=== PATIENT | female | born 1970 | race Two or more races ===

== ENCOUNTER 2024-10-06 02:57 | Emergency (ER) | payer MEDICAID, OTHER, SELFPAY ==
--- NOTE | ~2024-10-06 | CT_ITS ---
EXAMINATION: CT ABDOMEN AND PELVIS WITHOUT CONTRAST CLINICAL INFORMATION: Abdominal pain. COMPARISON: None available. TECHNIQUE: Multidetector volumetric imaging was performed from the superior aspect of the liver through the pubic symphysis. Sagittal and coronal reformatted images were obtained on the technologist's workstation. This CT examination was performed using dose optimization techniques as appropriate, variously including the following: *Automated exposure control *Adjustment of mA and/or kV according to patient size (this includes techniques or standardized protocols for targeted exams where dose is matched to indication/reason for exam; i.e. extremities or head) *Use of iterative reconstruction technique DLP: 1046 mGy-cm FINDINGS: Limited evaluation of the intra-abdominal organs and vascular structures due to lack of IV contrast Pulmonary patchy groundglass bilaterally. LIVER, GALLBLADDER, AND BILIARY TREE: Liver measures 15 cm with the decreased attenuation. Multiple hypodensities within a contracted gallbladder lumen. No pericholecystic fluid collection or gallbladder wall thickening. No intrahepatic or extrahepatic biliary ductal dilatation. PANCREAS: No peripancreatic fluid collections. No main pancreatic ductal dilatation. SPLEEN: Measures 6 cm. ADRENAL GLANDS: No nodular lesions. KIDNEYS AND URETERS: No hydronephrosis or nephrolithiasis. BLADDER: Fluid-filled. GASTROINTESTINAL TRACT: Collapsed appearance of the left hemicolon and the proximal and distal transverse colon likely related to peristalsis. No intestinal obstruction pattern. I do not see the appendix. No pericecal edema pattern. No ascites. No pneumoperitoneum. No pneumatosis intestinalis. ABDOMINAL WALL: Diastases abdominal rectus muscles in the periumbilical region with small fat-containing umbilical hernia. LYMPH NODES: No gross lymphadenopathy. VASCULAR: No aneurysm, abdominal aorta. PELVIC VISCERA: Uterine fibroids. OSSEOUS STRUCTURES: Multilevel thoracolumbar spondylosis more conspicuous at L3-4 and L4-5 levels resulting in central spinal canal stenosis. Castellvi type I sacralization.. CT/CT abdomen pelvis wo IV con IMPRESSION: Cholelithiasis. Hepatic steatosis Small fat-containing umbilical hernia. Mild interstitial edema versus small pulmonary artery disease versus small airway disease. Uterine fibroids Fleischner guidelines were followed. Electronically signed by: Pete Cohen MD 10/06/2024 09:57 AM EST
[2024-10-06 03:02] VITALS: BP 000/00; PULSE 89; RESP 18; TEMP 36.6; O2SAT 100; BMI 44.1
--- NOTE | 2024-10-06 03:09 | ECG_ITS ---
Test Reason : Pain Blood Pressure : / mmHG Vent. Rate : 084 BPM Atrial Rate : 084 BPM P-R Int : 158 ms QRS Dur : 080 ms QT Int : 352 ms P-R-T Axes : 036 036 016 degrees QTc Int : 415 ms Normal sinus rhythm Normal ECG No previous ECGs available Referred By: Generic ED Physician Electronically Signed By:JILLIAN PILLAI MD
[2024-10-06 03:37] LABS: MANUAL DIFF FLAG NO
[2024-10-06 03:38] LABS: Basophils Percent Auto 0.1 % (0-2); Eosinophils Percent Auto 0.1 % (0-4); Hemoglobin 12.9 g/dl (12.0-16.0); Imm Gran Abs Auto 0.01 X10*3/uL (0.00-0.03); Imm Gran Pct Auto 0.1 % (0.0-0.4); Lymphocytes Absolute Auto 1.6 X10*3/uL (1.2-4.9); Lymphocytes Percent Auto 20.4 % (20-40); Mean Corpuscular HGB Conc 32.3 g/dl (31.0-35.0); Mean Corpuscular Hemoglobin 26.1 pg (27.0-33.0); Mean Platelet Volume 9.9 fL (9.4-12.3); Monocytes Absolute Auto 0.3 X10*3/uL (0.1-1.2); Monocytes Percent Auto 4.2 % (2-11); Neutrophils Absolute Auto 5.7 x10*3/uL (2.0-8.3); Neutrophils Percent Auto 75.1 % (45-73); Platelet Count 325 X10*3/uL (160-400); Red Blood Count 4.94 X10*6/uL (4.20-5.50); Red Cell Distribution Width 14.4 % (11.0-16.0); White Blood Count 7.7 X10*3/uL (4.8-10.8)
[2024-10-06 03:54] LABS: Anion Gap 15 (12-20); Blood Urea Nitrogen 13 mg/dL (9-16); Calcium 9.8 mg/dL (8.4-10.2); Carbon Dioxide 20 mmol/L (22-29); Chloride 108 mmol/L (96-108); Creatinine Clr Calc Pharmacy 110.8; Estimated Glomerular Filt Rate > 60; Glucose Random 144 mg/dL (60-115); Lipase 17 U/L (8-78); Potassium 3.7 mmol/L (3.3-5.1); Sodium 139 mmol/L (135-145)
[2024-10-06 04:07] LABS: Troponin-I High Sensitivity < 2.7 ng/L (<3.5-17.0)
[2024-10-06 04:40] LABS: Appearance Urine Clear; Color Urine Yellow; Glucose Urine UA Negative (Negative); Leukocyte Esterase Urine Negative (Negative); Nitrite Urine Negative (Negative); PH 5.5 (5.0-9.0); Specific Gravity - Urine 1.025 (1.005-1.025); Urine Blood Negative (Negative); Urine Ketones Trace mg/dL (Negative); Urine Protein Negative (Neg-Trace)
[2024-10-06 06:11] VITALS: BP 162/88; PULSE 76; RESP 20; TEMP 36.7; O2SAT 100
--- NOTE | 2024-10-06 06:41 | ED.GENADULT ---
HPI - General Adult General Chief complaint: Abdominal Pain Stated complaint: abdominal pain Time Seen by Provider: 10/06/24 06:40 Source: patient and other (patient's partner) Mode of arrival: ambulatory Limitations: no limitations History of Present Illness ED Provider: Allie Adair PA-C HPI narrative: 53-year-old female with no significant PMH presents to the ED with a chief complaint of upper abdominal since yesterday. Patients partner is at bedside who aided with providing detailed history. She has been unable to tolerate oral intake due to pain and has had several episodes of vomiting while at home and here in the ED. Patient states that the pain has gotten progressively worse and now feels like a sharp, deep pain that spans across her upper abdomen and under her breasts. Patient is unable to sit still due to increased pain level. She is not SOB due to pain. Denies pelvic pain, lower abd pain or chest pain. Denies any sick contacts or recent travel. Relieving factors: none Exacerbating factors: none Associated symptoms: nausea/vomiting Treatments prior to arrival: none Related Data Allergies Allergy/AdvReac Type Severity Reaction Status Date / Time No Known Allergies Allergy Verified 10/06/24 03:04 Review of Systems Constitutional: Constitutional: Denies chills, Reports difficulty sleeping, Denies fever(s) and Denies night sweats Eyes: Eyes: Reports no additional eye complaints, Denies blurry vision, Denies change in vision, Denies diplopia, Denies eye discharge, Denies loss of vision and Denies eye pain ENT: Denies dizziness Cardiovascular: Cardiovascular: Denies chest pain, Denies lightheadedness, Denies Loss of Consciousness and Reports dyspnea Respiratory: Respiratory: Reports no additional respiratory complaints and Reports dyspnea Gastrointestinal: Gastrointestinal: Reports no additional gastrointestinal complaints, Reports abdominal pain (upper abdominal pain), Denies melena, Denies hematochezia, Denies change in bowel habits, Denies change in stool character, Denies GI cramping, Denies diarrhea, Reports nausea and Reports vomiting Genitourinary: Genitourinary: Denies hematuria, Denies urinary frequency, Denies dysuria, Denies urinary incontinence, Denies urinary hesitancy and Denies urinary urgency Musculoskeletal: Musculoskeletal: Reports no additional musculoskeletal complaints, Denies numbness and Denies tingling Neurologic: Denies dizziness, Denies loss of vision, Denies numbness and Denies tingling Psychiatric: Psychiatric: Reports no additional psychiatric complaints Endocrine: Endocrine: Reports no additional endocrine complaints Hematologic/Lymphatic: Hematologic/Lymphatic: Reports no additional hematologic/lymphatic complaints Allergic/Immunologic: Allergic/Immunologic: Reports no additional allergic/immunologic complaints PMFSH Past Medical History Attestation statement: The following information was validated with the patient. Source: old records reviewed and nursing notes reviewed Physical Exam ED Vital Signs: Vital Signs - 24 hr 10/06/24 03:02 10/06/24 06:11 10/06/24 08:33 Temperature 97.9 F 98.1 F 97.9 F Pulse Rate 89 76 76 Respiratory Rate 18 20 52 H Blood Pressure 000/00 L 162/88 H 157/62 H Pulse Oximetry 100 100 100 Oxygen Delivery Method Room Air Room Air Room Air 10/06/24 10:39 Temperature 97.9 F Pulse Rate 76 Respiratory Rate 18 Blood Pressure 151/66 H Pulse Oximetry 99 Oxygen Delivery Method BMI result Body Mass Index 44.1 Const General: cooperative, alert, awake, acute distress moderate and anxious; No comfortable Nutritional Appearance: well nourished Orientation/consciousness: patient oriented x3 Limitations: no limitations HENKY Head: Yes normal to inspection and Yes atraumatic Ears: hearing grossly normal bilaterally and external ears normal General nose exam: Normal external nose present, no nasal discharge noted and no epistaxis Face and sinus: Yes normal facial exam, No abrasion and No laceration Mouth: Normal oral and palatal mucosa present, no drooling and no muffled voice Eyes General: appearance normal, both eyes and all related structures Periorbital: periorbital findings normal Eyelids: Yes eyelids normal Conjunctivae: conjunctivae normal Pupils: Equal, round and reactive pupils present EOM: EOMs intact bilaterally Neck Neck: Yes normal visual inspection, Yes full ROM and Yes no lymphadenopathy Chest Chest palpation & inspection: normal inspection of the chest Resp Effort & Inspection: normal respiratory effort and able to speak in complete sentences Auscultation: no rales, no rhonchi and no wheezes GI Inspection: Yes normal to inspection and No distended Palpation (GI): Soft to palpation, Tenderness to palpation present (GI) in the epigastrum, in the LUQ and in the RUQ, no guarding and not rigid Percussion: Yes normal to percussion Neuro General: patient oriented x3 and moves all extremities Cranial nerves: Yes Equal, round and reactive pupils present Cognition (Neuro): normal cognition Extrem General: Yes normal to inspection, Yes full ROM and Yes capillary refill normal Psych Appearance: grossly normal Mental Status: mental status grossly normal Affect: normal affect Attitude: cooperative Thought process: Normal thought process present Thought content: Normal thought content present Insight: Good insight present (Psych) Medications Administered Discontinued Medications Generic Name Dose Route Start Last Admin Trade Name Stephanie PRN Reason Stop Dose Admin Morphine Sulfate 4 mg 10/06/24 07:38 10/06/24 08:30 Morphine Sulfate 4 Mg/Ml Cartridge IVPUSH 10/06/24 07:39 4 mg ONCE ONE Administration Protocol Ondansetron HCl 4 mg 10/06/24 07:38 10/06/24 08:30 Ondansetron Hcl 4 Mg/2 Ml Vial IVPUSH 10/06/24 07:39 4 mg ONCE ONE Administration Pantoprazole Sodium 40 mg 10/06/24 07:38 10/06/24 08:30 Pantoprazole Sodium 40 Mg/10 Ml Vial IVPUSH 10/06/24 07:39 40 mg ONCE ONE Administration Medical Decision Making Medical Decision Making [facility] Narrative: Patient is a 53 year old assigned female at with no reported medical history presenting to the emergency department today with abdominal pain, nausea, and vomiting. Patient's physical exam was as noted in the physical exam portion of this note. Patient's blood work showed mild elevation of LFTs but were otherwise unremarkable. Patient's urine showed no acute process. Patient's EKG was unremarkable. Patient's CT abd/pelvis showed cholelithiasis without cholecystitis. I explained my physical exam findings as well as all test results to the patient and the patient's partner. I answered all questions asked by the patient and the patient's partner. Patient received IV morphine, zofran, and protonix which, upon re-evaluation, she stated it helped her symptoms significantly. I stressed the importance of the patient taking her medication as directed (either prescribed or as the over the counter packaging recommends). I stressed the importance of the patient following up with her primary care provider and a general surgeon. I stressed the importance of the patient returning to the emergency department immediately if her symptoms were to worsen or if she were to develop any dizziness, shortness of breath, difficulty breathing, chest pain, blurry vision, loss of vision, nausea, vomiting, abdominal pain, fever, chills, back pain, or any other complaints. Patient and the patient's partner verbalized agreement and understanding with this treatment plan and discharge. Differential Diagnosis Differential Diagnoses: The differential diagnosis associated with the presentation includes Cholelithiasis Abdominal pain Biliary colic Admission/Observation Consideration of admission/observation: Escalation of care including admission/observation considered Patient would have been admitted to the hospital had her work up had any findings where hospital admission was appropriate and her clinical presentation warranted hospital admission. Lab Data [facility] Lab Attestation statement: I reviewed the patient's lab results. My interpretation of these results are in the [facility] Rationale portion of this note. 10/06/24 Unknown 10/06/24 Unknown Labs: Lab Results 10/06/24 10/06/24 Range/Units 04:33 Unknown WBC 7.7 (4.8-10.8) X10*3/uL RBC 4.94 (4.20-5.50) X10*6/uL Hgb 12.9 (12.0-16.0) g/dl Hct 40.0 (37.0-47.0) % MCV 81.0 (80.0-98.0) fL MCH 26.1 L (27.0-33.0) pg MCHC 32.3 (31.0-35.0) g/dl RDW 14.4 (11.0-16.0) % Plt Count 325 (160-400) X10*3/uL MPV 9.9 (9.4-12.3) fL Immature Gran % (Auto) 0.1 (0.0-0.4) % Neut % (Auto) 75.1 H (45-73) % Lymph % (Auto) 20.4 (20-40) % [place] % (Auto) 4.2 (2-11) % Eos % (Auto) 0.1 (0-4) % Baso % (Auto) 0.1 (0-2) % Lymph # (Auto) 1.6 (1.2-4.9) X10*3/uL [place] # (Auto) 0.3 (0.1-1.2) X10*3/uL Eos # (Auto) 0.0 (0.0-0.4) X10*3/uL Baso # (Auto) 0.0 (0.0-0.2) X10*3/uL Abs Immat Gran (auto) 0.01 (0.00-0.03) X10*3/uL Absolute Neuts (auto) 5.7 (2.0-8.3) x10*3/uL Absolute Nucleated RBC 0.000 (0.0-0.012) X10*3/uL Nucleated RBC % (auto) 0.0 (0.0-0.2) /100WBC Sodium 139 (135-145) mmol/L Potassium 3.7 (3.3-5.1) mmol/L Chloride 108 (96-108) mmol/L Carbon Dioxide 20 L (22-29) mmol/L Anion Gap 15 (12-20) BUN 13 (9-16) mg/dL Creatinine 0.78 (0.5-1.4) mg/dL Estim Creat Clear Calc 110.8 Estimated GFR > 60 Random Glucose 144 H (60-115) mg/dL Calcium 9.8 (8.4-10.2) mg/dL Total Bilirubin 0.2 (0.0-1.0) mg/dL Direct Bilirubin < 0.2 (0.0-0.5) mg/dL AST 32 H (5-31) U/L ALT 33 H (0-31) U/L Alkaline Phosphatase 128 H (39-117) U/L Troponin I High Sens < 2.7 (<3.5-17.0) ng/L Total Protein 8.7 H (6.5-8.0) g/dL Albumin 4.4 (3.5-5.0) g/dL Lipase 17 (8-78) U/L Urine Color Yellow Urine Appearance Clear Urine pH 5.5 (5.0-9.0) Ur Specific [place] 1.025 (1.005-1.025) Urine Protein Negative (Neg-Trace) mg/dL Urine Glucose (UA) Negative (Negative) mg/dL Urine Ketones Trace (Negative) mg/dL Urine Blood Negative (Negative) Urine Nitrite Negative (Negative) Ur Leukocyte Esterase Negative (Negative) Independent Interpretation I performed an independent interpretation of an: EKG and CT Scan Interpretation: My interpretation is in agreement with the radiologist's impression of this imaging study. EXAMINATION: CT ABDOMEN AND PELVIS WITHOUT CONTRAST CLINICAL INFORMATION: Abdominal pain. COMPARISON: None available. TECHNIQUE: Multidetector volumetric imaging was performed from the superior aspect of the liver through the pubic symphysis. Sagittal and coronal reformatted images were obtained on the technologist's workstation. This CT examination was performed using dose optimization techniques as appropriate, variously including the following: *Automated exposure control *Adjustment of mA and/or kV according to patient size (this includes techniques or standardized protocols for targeted exams where dose is matched to indication/reason for exam; i.e. extremities or head) *Use of iterative reconstruction technique DLP: 1046 mGy-cm FINDINGS: Limited evaluation of the intra-abdominal organs and vascular structures due to lack of IV contrast Pulmonary patchy groundglass bilaterally. LIVER, GALLBLADDER, AND BILIARY TREE: Liver measures 15 cm with the decreased attenuation. Multiple hypodensities within a contracted gallbladder lumen. No pericholecystic fluid collection or gallbladder wall thickening. No intrahepatic or extrahepatic biliary ductal dilatation. PANCREAS: No peripancreatic fluid collections. No main pancreatic ductal dilatation. SPLEEN: Measures 6 cm. ADRENAL GLANDS: No nodular lesions. KIDNEYS AND URETERS: No hydronephrosis or nephrolithiasis. BLADDER: Fluid-filled. GASTROINTESTINAL TRACT: Collapsed appearance of the left hemicolon and the proximal and distal transverse colon likely related to peristalsis. No intestinal obstruction pattern. I do not see the appendix. No pericecal edema pattern. No ascites. No pneumoperitoneum. No pneumatosis intestinalis. ABDOMINAL WALL: Diastases abdominal rectus muscles in the periumbilical region with small fat-containing umbilical hernia. LYMPH NODES: No gross lymphadenopathy. VASCULAR: No aneurysm, abdominal aorta. PELVIC VISCERA: Uterine fibroids. OSSEOUS STRUCTURES: Multilevel thoracolumbar spondylosis more conspicuous at L3-4 and L4-5 levels resulting in central spinal canal stenosis. Castellvi type I sacralization.. CT/CT abdomen pelvis wo IV con IMPRESSION: Cholelithiasis. Hepatic steatosis. Small fat-containing umbilical hernia. Mild interstitial edema versus small pulmonary artery disease versus small airway disease. Uterine fibroids Fleischner guidelines were followed. Electronically signed by: Pete Cohen MD 10/06/2024 09:57 AM [facility] Dictated By: Pete Bridges MD Signed By: Electronically signed by Pete Clayton MD 10/06/24 0957 Vent. Rate: 084 BPM Atrial Rate: 084 BPM P-R Int: 158 ms QRS Dur: 080 ms QT Int: 352 ms P-R-T Axes: 036 036 016 degrees QTc Int: 415 ms Normal sinus rhythm Normal ECG No previous ECGs available Referred By: Generic ED Physician Electronically Signed By:KEVAN PILLAI MD Dictated By: Kevan Pillai MD Signed By: Electronically signed by Kevan Pillai MD 10/06/24 0822 Radiology Impression Discussion of test interpretation with radiology: I have reviewed the radiologist's reading. Critical Care Time Critical Care Time Critical Care Time: Yes Total Critical Care Time: 36 Attestation: I spent 36 minutes of Critical Care Time with this patient. This does not include time spent on separately reported billable procedures. Discharge Plan Discharge Clinical Impression: Biliary colic, Cholelithiasis Patient Disposition: Home, Self-Care Instructions: Biliary Colic (ED), Gallstones (ED) Additional Instructions: Your work up shows evidence of gallstones in your gallbladder causing biliary colic. This is episodic pain from your gallbladder usually triggered by certain foods. Follow up with your primary care provider. Follow up with a general surgeon to discuss your gallbladder further. Return to the emergency department immediately if your symptoms worsen or if you develop any dizziness, shortness of breath, difficulty breathing, chest pain, blurry vision, loss of vision, nausea, vomiting, abdominal pain, fever, chills, back pain, or any other complaints. Keane examen muestra evidencia de c?lculos biliares en keane ves?cula biliar causando c?allan biliar. Se trata de un dolor epis?dico de la ves?cula biliar que suele desencadenarse por ciertos alimentos. Consulte a keane m?dico de cabecera. Acuda a un cirujano general para que le examine la ves?cula. Acuda inmediatamente al servicio de urgencias si louise s?ntomas empeoran o si presenta mareos, falta de aliento, dificultad para respirar, dolor tor?cico, visi?n borrosa, p?rdida de visi?n, n?useas, v?mitos, dolor abdominal, fiebre, escalofr?os, dolor de espalda o cualquier otra molestia. Referrals: [facility] General Surgeons [Provider Group] (Call to establish and follow up with a general surgeon to discuss your gallbladder further. Llame para establecer y seguir con un cirujano general para discutir m?s a fondo keane ves?cula biliar.) [facility] [Primary Care Provider] - Stand Alone Forms: Work/School Release Interventions: ED Discharge Assessment Last Done: 10/06/24 10:39 Discharge Date/Time: 10/06/24 10:40 Print Language: Mohawk
[2024-10-06 07:56] LABS: Alanine Aminotransferase 33 U/L (0-31); Albumin Level 4.4 g/dL (3.5-5.0); Alkaline Phosphatase 128 U/L (39-117); Aspartate Amino Transferase 32 U/L (5-31); Bilirubin Direct < 0.2 mg/dL (0.0-0.5); Bilirubin Total 0.2 mg/dL (0.0-1.0); Total Protein 8.7 g/dL (6.5-8.0)
[2024-10-06] MEDS: ondansetron HCL 4 MG/2 ML VIAL IVPUSH (08:30)
[2024-10-06] MEDS: Morphine Sulfate 4 MG/ML CARTRIDGE IVPUSH (08:30)
[2024-10-06] MEDS: Pantoprazole Sodium 40 MG/10 ML VIAL IVPUSH (08:30)
[2024-10-06 08:33] VITALS: BP 157/62; PULSE 76; RESP 52; TEMP 36.6; O2SAT 100
[2024-10-06 10:39] VITALS: BP 151/66; PULSE 76; RESP 18; TEMP 36.6; O2SAT 99
== END 2024-10-06 10:40 | disposition home or self-care (01) ==
PROVIDERS: Physician Assistant Medical; Emergency Provider Emergency Medicine
DX: K80.70 Calculus of gallbladder and bile duct without cholecystitis without obstruction (principal); R11.2 Nausea with vomiting, unspecified
CPT/HCPCS: 36415; 74176; 80048; 80076; 81003; 83690; 84484; 85025; 93005; 96374; 96375; 99284; J2270; J2405; J2470

== ENCOUNTER → 2024-10-06 03:09 | Outpatient (BNV) | payer MEDICAID, SELFPAY | PROVIDERS: Emergency Provider Emergency Medicine; Visit Provider Internal Medicine Cardiovascular Disease | DX: K80.20 Calculus of gallbladder without cholecystitis without obstruction (principal) | CPT/HCPCS: 93010 ==

== ENCOUNTER → 2024-10-06 07:38 | Outpatient (BNV) | payer MEDICAID, SELFPAY | PROVIDERS: Emergency Provider Emergency Medicine; Visit Provider Radiology Diagnostic Radiology | DX: R10.9 Unspecified abdominal pain (principal) | CPT/HCPCS: 74176 ==

== ENCOUNTER 2024-11-01 15:08 | Outpatient (REF) | payer MEDICAID, OTHER, SELFPAY | END 2024-11-01 15:09 | disposition home or self-care (01) | LOC: HO.US 15:08 | PROVIDERS: Visit Provider Family Medicine | DX: D25.9 Leiomyoma of uterus, unspecified (principal) | CPT/HCPCS: 76830; 76856 ==

== ENCOUNTER 2025-09-15 10:18 | Outpatient (REF) | payer MEDICAID, OTHER, SELFPAY ==
--- NOTE | ~2025-09-15 | XR_ITS ---
EXAMINATION: X-ray lumbar spine CLINICAL INFORMATION: Sciatica COMPARISON: None TECHNIQUE: 7 views lumbar spine FINDINGS: 5 lumbar type vertebral bodies. Grade 1 anterolisthesis of L4 on L5. Vertebral body heights are maintained. No evidence of acute fracture. Mild L5-S1 disc degeneration with endplate osteophytes. Multilevel facet degeneration. There appears be disc degenerative disease in the visualized lower thoracic spine, suboptimally evaluated. No suspicious bony lesions. SI joints are symmetric. No abnormal soft tissue calcifications.. XR/XR lumbar spine 4V min IMPRESSION: No radiographic evidence of acute osseous findings. Lumbar spondylosis. Mild L5-S1 disc degeneration. Electronically signed by: Tucker Madison MD 09/15/2025 12:31 PM EDT
[2025-09-15 11:31] LABS: MANUAL DIFF FLAG NO
[2025-09-15 11:38] LABS: Hematocrit 43.9 % (37.0-47.0); Hemoglobin 13.8 g/dl (12.0-16.0); Imm Gran Abs Auto 0.02 X10*3/uL (0.00-0.03); Imm Gran Pct Auto 0.2 % (0.0-0.4); Lymphocytes Absolute Auto 2.9 X10*3/uL (1.2-4.9); Mean Corpuscular HGB Conc 31.4 g/dl (31.0-35.0); Mean Corpuscular Hemoglobin 25.5 pg (27.0-33.0); Mean Corpuscular Volume 81.1 fL (80.0-98.0); NRBC Abs Auto 0.000 X10*3/uL (0.0-0.012); NRBC Pct Auto 0.0 /100WBC (0.0-0.2); Platelet Count 282 X10*3/uL (160-400); Red Blood Count 5.41 X10*6/uL (4.20-5.50); White Blood Count 8.5 X10*3/uL (4.8-10.8)
[2025-09-15 12:23] LABS: Alanine Aminotransferase 39 U/L (0-31); Albumin Level 4.5 g/dL (3.5-5.0); Alkaline Phosphatase 134 U/L (39-117); Anion Gap 14 (12-20); Aspartate Amino Transferase 37 U/L (5-31); Blood Urea Nitrogen 13 mg/dL (9-16); Calcium 9.8 mg/dL (8.4-10.2); Carbon Dioxide 23 mmol/L (22-29); Chloride 107 mmol/L (96-108); Cholesterol 241 mg/dL (<200); Estimated Glomerular Filt Rate > 60; HDL Cholesterol 72 mg/dL (>40); Potassium 4.2 mmol/L (3.3-5.1); Sodium 140 mmol/L (135-145); Total Protein 8.7 g/dL (6.5-8.0); Triglycerides 75 mg/dL (<150)
[2025-09-15 12:38] LABS: Reflex LDLD? No
[2025-09-15 12:54] LABS: HBS Num1 0.37 mIU/mL (0-7.99); HBc Num1 0.08 S/CO (0.00-0.79); HBsAGNum1 0.36 S/CO (0.00-0.99); HIV Num 1 0.06 S/CO (0.00-0.99); Hepatitis A Antibody IgM 0.19 Index (0-0.79); Hepatitis B Surface Antigen Negative (Negative); Syphilis Screen Nonreactive (Nonreactive); ~HepC Num1 0.07 S/CO (0.00-0.79); ~Hepatitis A Antibody IgM Nonreactive (Nonreactive); ~Hepatitis B Surface Antibody NONREACTIVE (Nonreactive); ~Hepatitis C Antibody Nonreactive (Nonreactive)
[2025-09-17 19:43] LABS: TS Negative Control Passed; TS Panel A 0; TS Panel B 1; TS Positive Control Passed; TSpotTB Negative (Negative)
== END 2025-09-15 10:19 | disposition home or self-care (01) ==
LOC: HO.HHCL 10:18
PROVIDERS: PCP Internal Medicine; Visit Provider Internal Medicine
DX: Z11.3 Encounter for screening for infections with a predominantly sexual mode of transmission (principal); Z11.4 Encounter for screening for human immunodeficiency virus [HIV]; Z11.59 Encounter for screening for other viral diseases; Z11.1 Encounter for screening for respiratory tuberculosis; R03.0 Elevated blood-pressure reading, without diagnosis of hypertension; K80.20 Calculus of gallbladder without cholecystitis without obstruction; E66.813 Obesity, class 3; Z68.41 Body mass index [BMI] 40.0-44.9, adult; M54.50 Low back pain, unspecified; G89.29 Other chronic pain
CPT/HCPCS: 36415; 72110; 80053; 80061; 83036; 84443; 85025; 86481; 86704; 86706; 86709; 86780; 86803; 87340; 87389

== ENCOUNTER → 2025-09-15 12:08 | Outpatient (BNV) | payer SELFPAY | PROVIDERS: PCP Internal Medicine; Visit Provider Radiology Diagnostic Ultrasound | DX: M47.816 Spondylosis without myelopathy or radiculopathy, lumbar region (principal); M51.360 Other intervertebral disc degeneration, lumbar region with discogenic back pain only | CPT/HCPCS: 72110 ==

== ENCOUNTER 2025-11-14 10:13 | Outpatient (REF) | payer SELFPAY ==
--- NOTE | ~2025-11-14 | MM_ITS ---
EXAMINATION: MM SCREENING DIGITAL BREAST TOMOSYNTHESIS, BILATERAL CLINICAL INFORMATION: Screening. Asymptomatic. COMPARISON: Mammography: No prior imaging available for comparison at this time. TECHNIQUE: Digital breast mammography with tomosynthesis is performed in both the craniocaudal and mediolateral oblique views along with computer-aided detection (CAD). FINDINGS: There are scattered areas of fibroglandular density. There are no significant masses, abnormal calcifications, or other abnormalities. MM/MM tomosynthesis screening BI IMPRESSION: No mammographic evidence of malignancy. ASSESSMENT: BI-RADS Category 1: Negative RECOMMENDATION: Routine annual mammography screening. 1 year F/U This examination should not preclude the clinical evaluation of a suspicious palpable abnormality. This patient's information was entered into a reminder system with a target due date for their next mammogram. Electronically signed by: Xin Osorio DO 11/16/2025 04:11 PM [facility]
== END 2025-11-14 10:14 | disposition home or self-care (01) ==
LOC: HO.MAMMO 10:13
PROVIDERS: PCP Internal Medicine; Visit Provider Internal Medicine
DX: Z12.31 Encounter for screening mammogram for malignant neoplasm of breast (principal)
CPT/HCPCS: 77063; 77067

== ENCOUNTER → 2025-11-14 10:30 | Outpatient (BNV) | payer SELFPAY | PROVIDERS: PCP Internal Medicine; Visit Provider Internal Medicine | DX: Z12.31 Encounter for screening mammogram for malignant neoplasm of breast (principal) | CPT/HCPCS: 77063; 77067 ==